=== PATIENT | male | born 1965 | race Caucasian/White ===

== ENCOUNTER 2018-04-02 17:44 | Inpatient (IN) | payer BC ==
[~2018-04-02] VITALS: Ht 177.8 cm; Wt 73.5 kg
--- NOTE | 2018-04-02 18:12 | Emergency Room Report ---
History of Present Illness General Chief Complaint: Overdose Source: Friend, EMS Present Illness HPI EMS was called by friends of this patient. They say he's taken a large amount of his phenobarbital. They're uncertain whether this was attempted to harm himself. Paramedics state that he was unresponsive for them. He was unresponsive last night but was able to Instagram at one point. He has been unresponsive since this AM. He is several days into rehab and using phenobarbital. They claim he also obtained Ambien (not from his physicians). Friends say he was worried he might inadvertently take excess medication but did not express that he wanted to harm himself. Allergies: Uncoded Allergies: RED WINE (Allergy, Unknown, 04/02/18) Patient History Limited by: medical condition Past Medical History: see triage record Social History: Reports: drug use Social History Narrative living with friends - rehab Reviewed Nursing Documentation: PMH: Agreed; PSxH: Agreed Review of Systems All Other Systems: limited Physical Exam Vital Signs Date Time Temp Pulse Resp B/P (MAP) Pulse Ox O2 Delivery O2 Flow Rate FiO2 04/02/18 17:34 97.5 60 14 133/83 97 Room Air Sp02 EP Interpretation: reviewed, normal General Appearance: Stupor Head: normocephalic, atraumatic Eyes: bilateral eye PERRL, bilateral eye Scleral Injection ENT: moist mucus membranes - + gag Neck: supple Respiratory: lungs clear, normal breath sounds Cardiovascular #1: regular rate, rhythm Cardiovascular #2: 2+ radial (R) Gastrointestinal: normal inspection, non tender, no mass, non-distended, decreased bowel sounds Genitourinary: no CVA tenderness Musculoskeletal: back normal Neurologic: other - stupor, unresponsive, but + gag, flaccid Psychiatric: other - stupor Reflexes: 0 knee (R), 0 knee (L) Skin: normal inspection, warm/dry Procedures Critical Care Time Critical Care Time Total Critical Care Time: 45 min bedside evaluation and treatment excludes procedures (EKG). Reason for critical care: stupor, OD Possible complications: hypotension, hypertension, [place], shock, arrhythmias, metabolic acidosis, end organ damage, respiratory failure. Interventions: repeat exams, consult poison control, discuss with PMD and critical care MD Course: Patient with alleged phenobarbital OD. Immediate evaluation of airway and determined not need intubation. After phenobarb level returned, consultation with poison control. Discussion with PMD who came to ED to evaluate the patient. Discussion with friends and family. Repeat evaluation with more responsiveness, however, still stuporous. Admit to ICU with discussion with critical care MD. Consultations: nursing staff, EMS, family, friends, poison control, PMD, critical care MD Performed by: Dr. Archibald Tolerated well condition = critical care MD Medical Decision Making Diagnostic Impression: Primary Impression: Drug overdose Qualified Codes: T50.904A - Poisoning by unspecified drugs, medicaments and biological substances, undetermined, initial encounter ER Course Patient presents with alleged phenobarbital overdose. Differential includes other potential medications that he might have taken, electrolyte abnormalities , AMI amongst others. The patient has a gag reflex and does not need to be intubated at this time. Evaluation will be with EKG, chest x-ray and labs. The patient will receive IV hydration. As is greater than 2 hours since the ingestion of a gastric lavage will not prove effective at this time. Will need psychiatric evaluation when more alert. EKG no injury. Labs with normal WBC. CXR no infiltrates. CMP normal. Phenobarbital elevated. Urine tox + for benzodiazepines. Discussed with Poison Control. Supportive measures. Long half life of phenobarbital necessitates admission to ICU. Discussed with family. Discussed with PMD. CT head - no bleed (atrophy). Patient more alert - rouses to name but still stuporous. Protecting airway. Contact Dr. Hernandez for admission. Laboratory Tests Test 04/02/18 18:01 04/02/18 18:30 White Blood Count 5.5 K/UL (4.8-10.8) Red Blood Count 5.05 M/UL (4.70-6.10) Hemoglobin 16.0 G/DL (14.2-18.0) Hematocrit 46.3 % (42.0-52.0) Mean Corpuscular Volume 92 FL (80-99) Mean Corpuscular Hemoglobin 31.7 PG (27.0-31.0) H Mean Corpuscular Hemoglobin Concent 34.5 G/DL (32.0-36.0) Red Cell Distribution Width 11.5 % (11.6-14.8) L Platelet Count 112 K/UL (150-450) L Mean Platelet Volume 7.8 FL (6.5-10.1) Neutrophils (%) (Auto) 53.3 % (45.0-75.0) Lymphocytes (%) (Auto) 28.9 % (20.0-45.0) Monocytes (%) (Auto) 15.1 % (1.0-10.0) H Eosinophils (%) (Auto) 1.4 % (0.0-3.0) Basophils (%) (Auto) 1.4 % (0.0-2.0) Sodium Level 142 MMOL/L (136-145) Potassium Level 4.7 MMOL/L (3.5-5.1) Chloride Level 107 MMOL/L (98-107) Carbon Dioxide Level 26 MMOL/L (21-32) Anion Gap 9 mmol/L (5-15) Blood Urea Nitrogen 8 mg/dL (7-18) Creatinine 0.9 MG/DL (0.55-1.30) Estimate Glomerular Filtration Rate > 60 mL/min (>60) Glucose Level 124 MG/DL (74-106) H Calcium Level 9.1 MG/DL (8.5-10.1) Total Bilirubin 0.2 MG/DL (0.2-1.0) Aspartate Amino Transferase (AST) 24 U/L (15-37) Alanine Aminotransferase (ALT) 37 U/L (12-78) Alkaline Phosphatase 86 U/L (46-116) Total Creatine Kinase 199 U/L (26-308) Troponin I 0.000 ng/mL (0.000-0.056) Total Protein 7.8 G/DL (6.4-8.2) Albumin 3.7 G/DL (3.4-5.0) Globulin 4.1 g/dL Albumin/Globulin Ratio 0.9 (1.0-2.7) L Salicylates Level 1.4 ug/mL (2.8-20) L Acetaminophen Level < 2 MCG/ML (10-30) L Phenobarbital Level 69.8 ug/mL (15-40) *H Serum Alcohol < 3 mg/dL Urine Color Pale yellow Urine Appearance Clear Urine pH 6.5 (4.5-8.0) Urine Specific Raymond 1.010 (1.005-1.035) Urine Protein Negative (NEGATIVE) Urine Glucose (UA) Negative (NEGATIVE) Urine Ketones Negative (NEGATIVE) Urine Blood 1+ (NEGATIVE) H Urine Nitrite Negative (NEGATIVE) Urine Bilirubin Negative (NEGATIVE) Urine Urobilinogen Normal MG/DL (0.0-1.0) Urine Leukocyte Esterase Negative (NEGATIVE) Urine RBC 0-2 /HPF (0 - 0) H Urine WBC 0-2 /HPF (0 - 0) Urine Squamous Epithelial Cells Few /LPF (NONE/OCC) Urine Bacteria Few /HPF (NONE) Urine Opiates Screen Negative (NEGATIVE) Urine Barbiturates Screen Positive (NEGATIVE) H Phencyclidine (PCP) Screen Negative (NEGATIVE) Urine Amphetamines Screen Negative (NEGATIVE) Urine Benzodiazepines Screen Positive (NEGATIVE) H Urine Cocaine Screen Negative (NEGATIVE) Urine Marijuana (THC) Screen Negative (NEGATIVE) EKG Diagnostic Results Rate: bradycardiac ST Segments: no acute changes Rhythm Strip Diag. Results EP Interpretation: yes Rhythm: no PVC's, no ectopy Chest X-Ray Diagnostic Results Chest X-Ray Diagnostic Results : Chest X-Ray Ordered: Yes # of Views/Limited/Complete: 1 View Indication: Other EP Interpretation: Yes Interpretation: no consolidation, no effusion, no pneumothorax Impression: No acute disease Electronically Signed by: Que Archibadl MD CT/MRI/US Diagnostic Results CT/MRI/US Diagnostic Results : Imaging Test Ordered: head Impression atrophy Status: improved Disposition: ADMITTED INPATIENT Condition: Critical Que Archibald MD Apr 02, 2018 18:12
[2018-04-02 18:26] LABS: BASOPHILS % (AUTO) 1.4 % (0.0-2.0); EOSINOPHILS % (AUTO) 1.4 % (0.0-3.0); HEMATOCRIT 46.3 % (42.0-52.0); LYMPHOCYTES % (AUTO) 28.9 % (20.0-45.0); MEAN CORPUSCULAR VOLUME 92 FL (80-99); MONOCYTES % (AUTO) 15.1 % (1.0-10.0); NEUTROPHILS % (AUTO) 53.3 % (45.0-75.0); PLATELET COUNT 112 K/UL (150-450); RED BLOOD COUNT 5.05 M/UL (4.70-6.10); RED CELL DISTRIBUTION WIDTH 11.5 % (11.6-14.8); WHITE BLOOD COUNT 5.5 K/UL (4.8-10.8)
[2018-04-02 18:32] LABS: ANION GAP 9 mmol/L (5-15); BLOOD UREA NITROGEN 8 mg/dL (7-18); CALCIUM 9.1 MG/DL (8.5-10.1); CARBON DIOXIDE 26 MMOL/L (21-32); CHLORIDE 107 MMOL/L (98-107); CREATININE 0.9 MG/DL (0.55-1.30); POTASSIUM 4.7 MMOL/L (3.5-5.1); SODIUM 142 MMOL/L (136-145)
[2018-04-02 18:42] LABS: ALANINE AMINOTRANSFERASE 37 U/L (12-78); ALBUMIN 3.7 G/DL (3.4-5.0); ALBUMIN/GLOBULIN RATIO 0.9 (1.0-2.7); ALKALINE PHOSPHATASE 86 U/L (46-116); ASPARTATE AMINO TRANSFERASE 24 U/L (15-37); BILIRUBIN,TOTAL 0.2 MG/DL (0.2-1.0); CREATINE KINASE 199 U/L (26-308)
[2018-04-02 18:42] LABS: APPEARANCE,URINE CLEAR; BILIRUBIN, URINE NEGATIVE (NEGATIVE); COLOR,URINE PALE YELLOW; GLUCOSE, URINE (UA) NEGATIVE (NEGATIVE); KETONES,URINE NEGATIVE (NEGATIVE); LEUKOCYTE ESTERASE ,URINE NEGATIVE (NEGATIVE); NITRITE,URINE NEGATIVE (NEGATIVE); PH,URINE 6.5 (4.5-8.0); PROTEIN,URINE NEGATIVE (NEGATIVE); UROBILINOGEN,URINE NORMAL MG/DL (0.0-1.0)
[2018-04-02 18:52] VITALS: BP 123/65
[2018-04-02 21:45] VITALS: BP 126/69
[2018-04-02 22:00] VITALS: BP 118/90
[2018-04-02] MEDS ORDERED: DEXILANT60 MG ORAL (22:09)
[2018-04-02] MEDS ORDERED: NEURONTIN300 MG ORAL (22:24)
[2018-04-02] MEDS ORDERED: PHENOBARBITAL64.8 MG PO (22:24)
[2018-04-02] MEDS ORDERED: DOXEPIN HCL10 MG ORAL (22:26)
[2018-04-02 22:30] VITALS: BP 122/92
[2018-04-02 23:00] VITALS: BP 113/75
[2018-04-03] VITALS (24 sets, daily range): BP systolic 94–120; BP diastolic 53–83
--- NOTE | 2018-04-03 10:49 | Diagnostic Imaging Report ---
Indications: Altered level of consciousness Technique: Spiral acquisitions obtained through the brain. Angled axial and coronal 5 x 5 mm slices were reconstructed. Total dose length product 1460.35 mGycm. CTDI vol(s) 70.38 mGy. Dose reduction achieved using automated exposure control Comparison: None. Findings: There is minimal prominence of the ventricles and extra axial CSF spaces. No acute intracranial hemorrhage or edema, mass effect, nor midline shift. Normal zheng-white differentiation. Visualized orbits are unremarkable. The sinuses are clear. The calvarium is intact. Impression: Negative. No evidence of acute intracranial bleed or mass effect This agrees with the preliminary interpretation provided overnight by Dr. Suh The CT scanner at [facility] is accredited by the [employer] and the scans are performed using protocols designed to limit radiation exposure to as low as reasonably achievable to attain images of sufficient resolution adequate for diagnostic evaluation.
--- NOTE | 2018-04-03 10:49 | Consultation ---
History of Present Illness General Date patient seen: Apr 03, 2018 Chief Complaint: Overdose Present Illness HPI the pt is a 53 yo homosexual male with hx of ambien, opiod and alcohol dependence who was admitted for ams. the pt was responsive however he was confusion and forgetful. the hx was provided by Chi patient's web marketing assistant. . Chi is patient's assistance and the person who found patient down in the apartment. Patient cannot recall events that led him to this hospitalization nor what medication he took. the Patient has long history of substance abuse dependency. the pt goes through periods of detox and relapses on Ambien while on phenobarbital Allergies: Uncoded Allergies: RED WINE (Allergy, Unknown, 04/02/18) Medication History Scheduled Dexlansoprazole (Dexilant), 60 MG ORAL DAILY, (Reported) Doxepin HCl (Doxepin HCl), 40 MG ORAL BEDTIME, (Reported) Phenobarbital (Phenobarbital), 64.8 MG PO Q6HR, (Reported) Scheduled PRN Gabapentin (Neurontin), 300 MG ORAL EVERY 6 HOURS PRN for Agitation, (Reported) Patient History Limited by: medical condition History Provided By: Patient, Caregiver, PMD Healthcare decision maker Resuscitation status Full Code Advanced Directive on File as per patient himself he has advance directive Past Medical/Surgical History Past Medical/Surgical History: (1) Drug overdose Review of Systems Psychiatric: Reports: prior hx, anxiety, emotional problems, hallucinations Physical Exam General Appearance: alert, confused, severe distress, agitated Last 24 Hour Vital Signs Date Time Temp Pulse Resp B/P (MAP) Pulse Ox O2 Delivery O2 Flow Rate FiO2 04/03/18 08:00 98.4 77 15 107/70 (82) 97 04/03/18 08:00 Room Air 04/03/18 08:00 80 04/03/18 07:00 79 15 107/61 (76) 97 04/03/18 06:00 81 18 113/60 (77) 97 04/03/18 05:00 79 16 116/69 (85) 97 04/03/18 04:00 77 04/03/18 04:00 Nasal Cannula 2.0 04/03/18 04:00 97.3 76 15 117/61 (79) 97 04/03/18 03:00 74 15 113/61 (78) 97 04/03/18 02:00 56 14 115/59 (77) 98 04/03/18 01:00 56 12 113/54 (73) 98 04/03/18 00:00 59 04/03/18 00:00 Nasal Cannula 2.0 04/03/18 00:00 97.0 58 14 114/66 (82) 99 04/02/18 23:00 62 17 113/75 (88) 99 04/02/18 22:30 62 18 122/92 (102) 99 04/02/18 22:00 Nasal Cannula 2.0 04/02/18 22:00 58 16 118/90 (99) 100 04/02/18 21:50 96.5 45 17 122/65 100 Nasal Cannula 2.0 04/02/18 21:45 96.4 16 126/69 (88) 100 04/02/18 21:41 48 04/02/18 18:52 97.5 44 12 123/65 100 Room Air 04/02/18 18:52 44 12 Room Air 04/02/18 17:34 97.5 60 14 133/83 97 Room Air Intake and Output 04/02/18 04/03/18 19:00 07:00 Intake Total 400 ml Output Total 0 ml 1090 ml Balance 0 ml -690 ml IV Total 400 ml Output Urine Total 0 ml 1090 ml Laboratory Tests Test 04/02/18 18:01 04/02/18 18:30 04/03/18 03:20 White Blood Count 5.5 K/UL (4.8-10.8) Red Blood Count 5.05 M/UL (4.70-6.10) Hemoglobin 16.0 G/DL (14.2-18.0) Hematocrit 46.3 % (42.0-52.0) Mean Corpuscular Volume 92 FL (80-99) Mean Corpuscular Hemoglobin 31.7 PG (27.0-31.0) H Mean Corpuscular Hemoglobin Concent 34.5 G/DL (32.0-36.0) Red Cell Distribution Width 11.5 % (11.6-14.8) L Platelet Count 112 K/UL (150-450) L Mean Platelet Volume 7.8 FL (6.5-10.1) Neutrophils (%) (Auto) 53.3 % (45.0-75.0) Lymphocytes (%) (Auto) 28.9 % (20.0-45.0) Monocytes (%) (Auto) 15.1 % (1.0-10.0) H Eosinophils (%) (Auto) 1.4 % (0.0-3.0) Basophils (%) (Auto) 1.4 % (0.0-2.0) Sodium Level 142 MMOL/L (136-145) Potassium Level 4.7 MMOL/L (3.5-5.1) Chloride Level 107 MMOL/L (98-107) Carbon Dioxide Level 26 MMOL/L (21-32) Anion Gap 9 mmol/L (5-15) Blood Urea Nitrogen 8 mg/dL (7-18) Creatinine 0.9 MG/DL (0.55-1.30) Estimat Glomerular Filtration Rate > 60 mL/min (>60) Glucose Level 124 MG/DL (74-106) H Calcium Level 9.1 MG/DL (8.5-10.1) Total Bilirubin 0.2 MG/DL (0.2-1.0) Aspartate Amino Transf (AST/SGOT) 24 U/L (15-37) Alanine Aminotransferase (ALT/SGPT) 37 U/L (12-78) Alkaline Phosphatase 86 U/L (46-116) Total Creatine Kinase 199 U/L (26-308) Troponin I 0.000 ng/mL (0.000-0.056) Total Protein 7.8 G/DL (6.4-8.2) Albumin 3.7 G/DL (3.4-5.0) Globulin 4.1 g/dL Albumin/Globulin Ratio 0.9 (1.0-2.7) L Salicylates Level 1.4 ug/mL (2.8-20) L Acetaminophen Level < 2 MCG/ML (10-30) L Phenobarbital Level 69.8 ug/mL (15-40) *H 60.5 ug/mL (15-40) *H Serum Alcohol < 3 mg/dL Urine Color Pale yellow Urine Appearance Clear Urine pH 6.5 (4.5-8.0) Urine Specific [place] 1.010 (1.005-1.035) Urine Protein Negative (NEGATIVE) Urine Glucose (UA) Negative (NEGATIVE) Urine Ketones Negative (NEGATIVE) Urine Blood 1+ (NEGATIVE) H Urine Nitrite Negative (NEGATIVE) Urine Bilirubin Negative (NEGATIVE) Urine Urobilinogen Normal MG/DL (0.0-1.0) Urine Leukocyte Esterase Negative (NEGATIVE) Urine RBC 0-2 /HPF (0 - 0) H Urine WBC 0-2 /HPF (0 - 0) Urine Squamous Epithelial Cells Few /LPF (NONE/OCC) Urine Bacteria Few /HPF (NONE) Urine Opiates Screen Negative (NEGATIVE) Urine Barbiturates Screen Positive (NEGATIVE) H Phencyclidine (PCP) Screen Negative (NEGATIVE) Urine Amphetamines Screen Negative (NEGATIVE) Urine Benzodiazepines Screen Positive (NEGATIVE) H Urine Cocaine Screen Negative (NEGATIVE) Urine Marijuana (THC) Screen Negative (NEGATIVE) Height (Feet): 5 Height (Inches): 10.00 Weight (Pounds): 165 Medications Current Medications Medications (Trade) Dose Ordered Sig/Reymundo Route PRN Reason Start Time Stop Time Status Last Admin Dose Admin Sodium Chloride 1,000 ml @ 100 mls/hr Q10H IV 04/03/18 00:15 05/03/18 00:14 04/03/18 10:12 Assessment/Plan Problem List: (1) Drug overdose ICD Codes: T50.901A - Poisoning by unspecified drugs, medicaments and biological substances, accidental (unintentional), initial encounter SNOMED: 89426948 (2) Polysubstance dependence ICD Codes: F19.20 - Other psychoactive substance dependence, uncomplicated SNOMED: 13534326 Assessment/Plan valium 10mg q 2hr/prn the pt lacks capacity to leave [facility] risperdal [facility] Wanda Gunn MD Apr 03, 2018 10:49
--- NOTE | 2018-04-03 11:22 | Diagnostic Imaging Report ---
Indication: Shortness of breath Technique: One view of the chest Comparison: none Findings: Lungs and pleural spaces are clear. Heart size is normal. There is evidence of prior cervical surgery Impression: No acute process
[2018-04-03] MEDS ORDERED: Thiamine 100mg tab ORAL SCH ×2 (13:00→16:00)
--- NOTE | 2018-04-03 15:03 | Cardiology Report ---
APPROVED REPORT EKG Measurement Heart [id number] VT [id number] Sinus bradycardia Otherwise normal ECG
[2018-04-04] VITALS (24 sets, daily range): BP systolic 89–159; BP diastolic 55–96
--- NOTE | 2018-04-04 05:01 | History and Physical Report ---
DATE OF ADMISSION: 04/02/2018 REASON FOR ADMISSION: Phenobarbital overdose. HISTORY OF PRESENT ILLNESS: This is a 53-year-old male, who was brought in due to significant alteration in mental status. The patient did not harm himself, undergoing home detox, Ambien and was closely monitored. The patient apparently had taken excessive amount of phenobarbital and was found unresponsive. The patient is overall comfortable at present, in no significant distress. The patient is able to verbalize his needs and history, although he feels unsteady at this time. PAST MEDICAL HISTORY: Notable for the above. MEDICATIONS: Reviewed. ALLERGIES: Reviewed. SOCIAL HISTORY: Living with parents, undergoing home detox. PHYSICAL EXAMINATION: GENERAL: A well-developed male, otherwise comfortable, alert, and oriented. VITAL SIGNS: Otherwise stable. HEENT: Negative. NECK: Supple. LUNGS: Clear and symmetric. CARDIAC: S1, S2. Regular rate and rhythm without murmurs, rubs, or gallops. ABDOMEN: Soft, nontender, and nondistended. EXTREMITIES: No cyanosis, clubbing, or edema. NEUROLOGIC: Grossly nonfocal. LABORATORY DATA: Reviewed. CBC normal. Platelets are 112. Blood sugar 124. The toxicology screen notable for significantly elevated phenobarbital levels, barbiturates, and benzodiazepines. IMPRESSION: 1. Phenobarbital toxicity. 2. Ambien addiction. 3. positive barbiturates, some benzodiazepines. 4. Mild thrombocytopenia. RECOMMENDATIONS: IV hydration. Advance diet. We will transfer at ICU. We will obtain psychiatric evaluation and follow up phenobarbital level for hopeful resolution and discharge planning. Geraldo Hernandez M.D. DR: JEY JOB#: [id number] CC: ZULLY
[2018-04-04 05:38] LABS: BASOPHILS % (AUTO) 0.8 % (0.0-2.0); HEMATOCRIT 38.6 % (42.0-52.0); HEMOGLOBIN 13.3 G/DL (14.2-18.0); LYMPHOCYTES % (AUTO) 31.9 % (20.0-45.0); MEAN CORPUSCULAR VOLUME 90 FL (80-99); MONOCYTES % (AUTO) 7.6 % (1.0-10.0); NEUTROPHILS % (AUTO) 58.8 % (45.0-75.0); PLATELET COUNT 142 K/UL (150-450); RED CELL DISTRIBUTION WIDTH 11.4 % (11.6-14.8); WHITE BLOOD COUNT 4.7 K/UL (4.8-10.8)
[2018-04-04] MEDS ORDERED: Thiamine 100mg tab ORAL SCH (09:00)
--- NOTE | 2018-04-04 10:20 | General Progress Note ---
Assessment/Plan Assessment/Plan IMPRESSION: 1. Phenobarbital toxicity. 2. Ambien addiction. 3. positive barbiturates, some benzodiazepines. 4. Mild thrombocytopenia. PLAN transfer to floor PT Hydration as needed dc planning psych clearance medications/laboratory data/nursing notes/ICU care reviewed in detail note reviewed and edited care discussed with RN and RT ICU time spent 40 minutes Subjective Allergies: Uncoded Allergies: RED WINE (Allergy, Unknown, 04/02/18) Subjective improved psych noted ICU care reviewed Objective Last 24 Hour Vital Signs Date Time Temp Pulse Resp B/P (MAP) Pulse Ox O2 Delivery O2 Flow Rate FiO2 04/04/18 09:00 73 16 113/94 (100) 99 04/04/18 08:00 Room Air 04/04/18 08:00 97.9 67 14 89/55 (66) 99 04/04/18 07:00 62 15 93/59 (70) 98 04/04/18 06:00 62 16 93/57 (69) 98 04/04/18 05:00 64 14 104/69 (81) 98 04/04/18 04:00 72 04/04/18 04:00 Room Air 04/04/18 04:00 97.7 66 14 90/59 (69) 98 04/04/18 03:00 64 21 95/55 (68) 97 04/04/18 02:00 65 14 101/63 (76) 97 04/04/18 01:00 65 16 93/58 (70) 100 04/04/18 00:00 65 04/04/18 00:00 Room Air 04/04/18 00:00 98.0 68 17 97/57 (70) 98 04/03/18 23:00 75 16 100/63 (75) 100 04/03/18 22:00 79 15 112/69 (83) 98 04/03/18 21:00 78 16 113/74 (87) 100 04/03/18 20:00 Room Air 04/03/18 20:00 97.9 77 16 115/80 (92) 100 04/03/18 20:00 72 04/03/18 19:00 78 19 120/76 (91) 100 04/03/18 18:00 76 18 110/75 (87) 100 04/03/18 17:00 72 16 96/74 (81) 99 04/03/18 16:00 74 04/03/18 16:00 97.9 78 16 108/75 (86) 99 04/03/18 16:00 Room Air 04/03/18 15:00 74 15 111/68 (82) 99 04/03/18 14:00 90 15 98/61 (73) 96 04/03/18 13:00 67 15 109/64 (79) 96 04/03/18 12:00 98.4 69 16 94/62 (73) 96 04/03/18 12:00 76 04/03/18 12:00 Room Air 04/03/18 11:00 76 16 99/53 (68) 96 Intake and Output 04/03/18 04/04/18 19:00 07:00 Intake Total 1890 ml 1500 ml Output Total 370 ml 650 ml Balance 1520 ml 850 ml Intake Oral 690 ml 500 ml IV Total 1200 ml 1000 ml Output Urine Total 370 ml 650 ml Laboratory Tests 04/04/18 04:20: White Blood Count 4.7L, Red Blood Count 4.30L, Hemoglobin 13.3L, Hematocrit 38.6L, Mean Corpuscular Volume 90, Mean Corpuscular Hemoglobin 30.8, Mean Corpuscular Hemoglobin Concent 34.3, Red Cell Distribution Width 11.4L, Platelet Count 142L, Mean Platelet Volume 8.0, Neutrophils (%) (Auto) 58.8, Lymphocytes (%) (Auto) 31.9, Monocytes (%) (Auto) 7.6, Eosinophils (%) (Auto) 1.0, Basophils (%) (Auto) 0.8, Phenobarbital Level 48.5*H Height (Feet): 5 Height (Inches): 10.00 Weight (Pounds): 165 Objective GENERAL: A well-developed male, otherwise comfortable, alert, and oriented. HEENT: Negative. NECK: Supple. LUNGS: Clear and symmetric. CARDIAC: S1, S2. Regular rate and rhythm without murmurs, rubs, or gallops. ABDOMEN: Soft, nontender, and nondistended. EXTREMITIES: No cyanosis, clubbing, or edema. NEUROLOGIC: Grossly nonfocal. more alert Geraldo Hernandez MD Apr 04, 2018 10:20
--- NOTE | 2018-04-04 23:54 | General Progress Note ---
Assessment/Plan Problem List: (1) Drug overdose ICD Codes: T50.901A - Poisoning by unspecified drugs, medicaments and biological substances, accidental (unintentional), initial encounter SNOMED: 66367455 (2) Polysubstance dependence ICD Codes: F19.20 - Other psychoactive substance dependence, uncomplicated SNOMED: 95168545 Status: stable Assessment/Plan valium 10mg q 2hr/prn the pt lacks capacity to leave [facility] dc risperdal qhs remeron 15mg qhs the pt is not suicidal the pt is not at imminent dts/dto Subjective Date patient seen: Apr 04, 2018 Neurologic/Psychiatric: Reports: anxiety, depressed, emotional problems Allergies: Uncoded Allergies: RED WINE (Allergy, Unknown, 04/02/18) Subjective the pt was educated in regards to mixing drugs the pt christiano on barbiturates the pt has poor insight Objective Last 24 Hour Vital Signs Date Time Temp Pulse Resp B/P (MAP) Pulse Ox O2 Delivery O2 Flow Rate FiO2 04/04/18 23:00 76 16 132/78 (96) 99 04/04/18 22:00 76 16 159/83 (108) 98 04/04/18 21:00 76 16 130/65 (86) 97 04/04/18 20:00 75 04/04/18 20:00 Room Air 04/04/18 20:00 98.8 84 16 109/69 (82) 97 04/04/18 19:00 72 17 132/79 (96) 97 04/04/18 18:00 75 17 135/81 (99) 97 04/04/18 17:00 69 17 119/75 (90) 97 04/04/18 16:00 82 04/04/18 16:00 Room Air 04/04/18 16:00 72 17 122/72 (89) 97 04/04/18 15:00 69 17 125/75 (92) 97 04/04/18 14:00 79 17 124/89 (101) 99 04/04/18 13:00 97.4 79 17 144/96 (112) 99 04/04/18 12:00 Room Air 04/04/18 12:00 85 04/04/18 12:00 76 16 113/82 (92) 99 04/04/18 11:00 74 15 106/69 (81) 99 04/04/18 10:00 72 18 115/88 (97) 99 04/04/18 09:00 73 16 113/94 (100) 99 04/04/18 08:00 65 04/04/18 08:00 Room Air 04/04/18 08:00 97.9 67 14 89/55 (66) 99 04/04/18 07:00 62 15 93/59 (70) 98 04/04/18 06:00 62 16 93/57 (69) 98 04/04/18 05:00 64 14 104/69 (81) 98 04/04/18 04:00 72 04/04/18 04:00 Room Air 04/04/18 04:00 97.7 66 14 90/59 (69) 98 04/04/18 03:00 64 21 95/55 (68) 97 04/04/18 02:00 65 14 101/63 (76) 97 04/04/18 01:00 65 16 93/58 (70) 100 04/04/18 00:00 65 04/04/18 00:00 Room Air 04/04/18 00:00 98.0 68 17 97/57 (70) 98 Intake and Output 04/03/18 04/04/18 19:00 07:00 Intake Total 1890 ml 1500 ml Output Total 370 ml 650 ml Balance 1520 ml 850 ml Intake Oral 690 ml 500 ml IV Total 1200 ml 1000 ml Output Urine Total 370 ml 650 ml Laboratory Tests 04/04/18 04:20: White Blood Count 4.7L, Red Blood Count 4.30L, Hemoglobin 13.3L, Hematocrit 38.6L, Mean Corpuscular Volume 90, Mean Corpuscular Hemoglobin 30.8, Mean Corpuscular Hemoglobin Concent 34.3, Red Cell Distribution Width 11.4L, Platelet Count 142L, Mean Platelet Volume 8.0, Neutrophils (%) (Auto) 58.8, Lymphocytes (%) (Auto) 31.9, Monocytes (%) (Auto) 7.6, Eosinophils (%) (Auto) 1.0, Basophils (%) (Auto) 0.8, Phenobarbital Level 48.5*H Height (Feet): 5 Height (Inches): 10.00 Weight (Pounds): 165 General Appearance: alert, moderate distress Neurologic: oriented x 3, responsive, depressed affect Wanda Gunn MD Apr 04, 2018 23:54
[2018-04-05] VITALS (7 sets, daily range): BP systolic 107–132; BP diastolic 64–79
--- NOTE | 2018-04-05 08:34 | General Progress Note ---
Assessment/Plan Assessment/Plan IMPRESSION: 1. Phenobarbital toxicity. 2. Ambien addiction. 3. positive barbiturates, some benzodiazepines. 4. Mild thrombocytopenia. PLAN transfer to floor ordered PT Hydration as needed dc planning/ not suicidal per psych psych clearance medications/laboratory data/nursing notes/ICU care reviewed in detail note reviewed and edited care discussed with RN and RT ICU time spent 40 minutes Subjective Allergies: Uncoded Allergies: RED WINE (Allergy, Unknown, 04/02/18) Subjective improved psych noted ICU care reviewed doing well Objective Last 24 Hour Vital Signs Date Time Temp Pulse Resp B/P (MAP) Pulse Ox O2 Delivery O2 Flow Rate FiO2 04/05/18 04:00 Room Air 04/05/18 04:00 98.4 70 18 126/70 (88) 99 04/05/18 04:00 70 04/05/18 03:00 77 18 122/72 (89) 99 04/05/18 02:00 72 18 118/69 (85) 99 04/05/18 01:00 62 18 120/70 (87) 99 04/05/18 00:00 64 16 127/70 (89) 99 04/05/18 00:00 Room Air 04/05/18 00:00 78 04/05/18 00:00 98.0 64 16 127/70 (89) 99 04/04/18 23:00 76 16 132/78 (96) 99 04/04/18 22:00 76 16 159/83 (108) 98 04/04/18 21:00 76 16 130/65 (86) 97 04/04/18 20:00 75 04/04/18 20:00 Room Air 04/04/18 20:00 98.8 84 16 109/69 (82) 97 04/04/18 19:00 72 17 132/79 (96) 97 04/04/18 18:00 75 17 135/81 (99) 97 04/04/18 17:00 69 17 119/75 (90) 97 04/04/18 16:00 82 04/04/18 16:00 Room Air 04/04/18 16:00 72 17 122/72 (89) 97 04/04/18 15:00 69 17 125/75 (92) 97 04/04/18 14:00 79 17 124/89 (101) 99 04/04/18 13:00 97.4 79 17 144/96 (112) 99 04/04/18 12:00 Room Air 04/04/18 12:00 85 04/04/18 12:00 76 16 113/82 (92) 99 04/04/18 11:00 74 15 106/69 (81) 99 04/04/18 10:00 72 18 115/88 (97) 99 04/04/18 09:00 73 16 113/94 (100) 99 Intake and Output 04/04/18 04/05/18 19:00 07:00 Intake Total 1610 ml 1420 ml Output Total 450 ml 900 ml Balance 1160 ml 520 ml Intake Oral 510 ml 220 ml IV Total 1100 ml 1200 ml Output Urine Total 450 ml 900 ml Labs Test 04/02/18 18:01 04/02/18 18:30 04/03/18 03:20 04/04/18 04:20 White Blood Count 5.5 K/UL (4.8-10.8) 4.7 K/UL (4.8-10.8) Red Blood Count 5.05 M/UL (4.70-6.10) 4.30 M/UL (4.70-6.10) Hemoglobin 16.0 G/DL (14.2-18.0) 13.3 G/DL (14.2-18.0) Hematocrit 46.3 % (42.0-52.0) 38.6 % (42.0-52.0) Mean Corpuscular Volume 92 FL (80-99) 90 FL (80-99) Mean Corpuscular Hemoglobin 31.7 PG (27.0-31.0) 30.8 PG (27.0-31.0) Mean Corpuscular Hemoglobin Concent 34.5 G/DL (32.0-36.0) 34.3 G/DL (32.0-36.0) Red Cell Distribution Width 11.5 % (11.6-14.8) 11.4 % (11.6-14.8) Platelet Count 112 K/UL (150-450) 142 K/UL (150-450) Mean Platelet Volume 7.8 FL (6.5-10.1) 8.0 FL (6.5-10.1) Neutrophils (%) (Auto) 53.3 % (45.0-75.0) 58.8 % (45.0-75.0) Lymphocytes (%) (Auto) 28.9 % (20.0-45.0) 31.9 % (20.0-45.0) Monocytes (%) (Auto) 15.1 % (1.0-10.0) 7.6 % (1.0-10.0) Eosinophils (%) (Auto) 1.4 % (0.0-3.0) 1.0 % (0.0-3.0) Basophils (%) (Auto) 1.4 % (0.0-2.0) 0.8 % (0.0-2.0) Sodium Level 142 MMOL/L (136-145) Potassium Level 4.7 MMOL/L (3.5-5.1) Chloride Level 107 MMOL/L (98-107) Carbon Dioxide Level 26 MMOL/L (21-32) Anion Gap 9 mmol/L (5-15) Blood Urea Nitrogen 8 mg/dL (7-18) Creatinine 0.9 MG/DL (0.55-1.30) Estimat Glomerular Filtration Rate > 60 mL/min (>60) Glucose Level 124 MG/DL (74-106) Calcium Level 9.1 MG/DL (8.5-10.1) Total Bilirubin 0.2 MG/DL (0.2-1.0) Aspartate Amino Transf (AST/SGOT) 24 U/L (15-37) Alanine Aminotransferase (ALT/SGPT) 37 U/L (12-78) Alkaline Phosphatase 86 U/L (46-116) Total Creatine Kinase 199 U/L (26-308) Troponin I 0.000 ng/mL (0.000-0.056) Total Protein 7.8 G/DL (6.4-8.2) Albumin 3.7 G/DL (3.4-5.0) Globulin 4.1 g/dL Albumin/Globulin Ratio 0.9 (1.0-2.7) Salicylates Level 1.4 ug/mL (2.8-20) Acetaminophen Level < 2 MCG/ML (10-30) Phenobarbital Level 69.8 ug/mL (15-40) 60.5 ug/mL (15-40) 48.5 ug/mL (15-40) Serum Alcohol < 3 mg/dL Urine Color Pale yellow Urine Appearance Clear Urine pH 6.5 (4.5-8.0) Urine Specific [place] 1.010 (1.005-1.035) Urine Protein Negative (NEGATIVE) Urine Glucose (UA) Negative (NEGATIVE) Urine Ketones Negative (NEGATIVE) Urine Blood 1+ (NEGATIVE) Urine Nitrite Negative (NEGATIVE) Urine Bilirubin Negative (NEGATIVE) Urine Urobilinogen Normal MG/DL (0.0-1.0) Urine Leukocyte Esterase Negative (NEGATIVE) Urine RBC 0-2 /HPF (0 - 0) Urine WBC 0-2 /HPF (0 - 0) Urine Squamous Epithelial Cells Few /LPF (NONE/OCC) Urine Bacteria Few /HPF (NONE) Urine Opiates Screen Negative (NEGATIVE) Urine Barbiturates Screen Positive (NEGATIVE) Phencyclidine (PCP) Screen Negative (NEGATIVE) Urine Amphetamines Screen Negative (NEGATIVE) Urine Benzodiazepines Screen Positive (NEGATIVE) Urine Cocaine Screen Negative (NEGATIVE) Urine Marijuana (THC) Screen Negative (NEGATIVE) Height (Feet): 5 Height (Inches): 10.00 Weight (Pounds): 162 Objective GENERAL: A well-developed male, otherwise comfortable, alert, and oriented. HEENT: Negative. NECK: Supple. LUNGS: Clear and symmetric. CARDIAC: S1, S2. Regular rate and rhythm without murmurs, rubs, or gallops. ABDOMEN: Soft, nontender, and nondistended. EXTREMITIES: No cyanosis, clubbing, or edema. NEUROLOGIC: Grossly nonfocal. more alert and calm Geraldo Hernandez MD Apr 05, 2018 08:34
[2018-04-05] MEDS ORDERED: Thiamine 100mg tab ORAL SCH (10:00)
[2018-04-05] MEDS ORDERED: Tubing IV Secondary IV ONE (12:14)
--- NOTE | 2018-04-05 12:25 | General Progress Note ---
Assessment/Plan Problem List: (1) Drug overdose ICD Codes: T50.901A - Poisoning by unspecified drugs, medicaments and biological substances, accidental (unintentional), initial encounter SNOMED: 65859040 Qualifiers: Qualified Codes: T50.904A - Poisoning by unspecified drugs, medicaments and biological substances, undetermined, initial encounter (2) Polysubstance dependence ICD Codes: F19.20 - Other psychoactive substance dependence, uncomplicated SNOMED: 20641338 Status: stable, progressing Assessment/Plan remeron 15mg qhs the pt is not suicidal the pt is not at imminent dts/dto the pt was given script for Lexapro and Remeron Subjective Date patient seen: Apr 05, 2018 Neurologic/Psychiatric: Reports: anxiety, depressed Allergies: Uncoded Allergies: RED WINE (Allergy, Unknown, 04/02/18) Subjective the pt was educated in regards to mixing drugs and abusing Ambien with Barbiturates. The pt was entitled. The pt was in denial about the substance use. the pt stated that his plan is to see Dr. Chaudhry at his house tomorrow. The pt refused to follow up with a psychiatrist and stated that "my friend because he took too many pills." The pt stated that he has a therapist. There is an MD who is prescribing him Phenobarbitals and has a person come to his house and administer that . the pt stated he does not recall the details. the pt stated that he is seeing Dr. Carty as well who is a "creative intern doctor." Objective Last 24 Hour Vital Signs Date Time Temp Pulse Resp B/P (MAP) Pulse Ox O2 Delivery O2 Flow Rate FiO2 04/05/18 09:00 Room Air 04/05/18 08:30 97.0 60 18 107/64 (78) 96 04/05/18 04:00 Room Air 04/05/18 04:00 98.4 70 18 126/70 (88) 99 04/05/18 04:00 70 04/05/18 03:00 77 18 122/72 (89) 99 04/05/18 02:00 72 18 118/69 (85) 99 04/05/18 01:00 62 18 120/70 (87) 99 04/05/18 00:00 64 16 127/70 (89) 99 11/15/18 00:00 Room Air 04/05/18 00:00 78 04/05/18 00:00 98.0 64 16 127/70 (89) 99 04/04/18 23:00 76 16 132/78 (96) 99 04/04/18 22:00 76 16 159/83 (108) 98 04/04/18 21:00 76 16 130/65 (86) 97 04/04/18 20:00 75 04/04/18 20:00 Room Air 04/04/18 20:00 98.8 84 16 109/69 (82) 97 04/04/18 19:00 72 17 132/79 (96) 97 04/04/18 18:00 75 17 135/81 (99) 97 04/04/18 17:00 69 17 119/75 (90) 97 04/04/18 16:00 82 04/04/18 16:00 Room Air 04/04/18 16:00 72 17 122/72 (89) 97 04/04/18 15:00 69 17 125/75 (92) 97 04/04/18 14:00 79 17 124/89 (101) 99 04/04/18 13:00 97.4 79 17 144/96 (112) 99 Intake and Output 04/04/18 04/05/18 19:00 07:00 Intake Total 1610 ml 1420 ml Output Total 450 ml 900 ml Balance 1160 ml 520 ml Intake Oral 510 ml 220 ml IV Total 1100 ml 1200 ml Output Urine Total 450 ml 900 ml Height (Feet): 5 Height (Inches): 10.00 Weight (Pounds): 162 General Appearance: no apparent distress, alert Neurologic: oriented x 3, responsive, depressed affect Wanda Gunn MD Apr 05, 2018 12:25
[2018-04-05] MEDS ORDERED: Flu Vaccine (Alfuria) for Pts Less than 65 Years old IM ONE (13:00)
[2018-04-06] MEDS ORDERED: Thiamine 100mg tab ORAL SCH (09:00)
--- NOTE | 2018-04-06 09:37 | Discharge Summary ---
Discharge Summary Discharge Summary _ DATE OF ADMISSION: 04/02/2018 DATE OF DISCHARGE: 04/05/2018 CONSULTANTS: Dr. Wanda Gunn BRIEF HOSPITAL COURSE: Patient is a 53-year-old male, who was brought in due to significant alteration in mental status. Patient was brought in via EMS. Patient was undergoing detox. He apparently had taken excessive amounts of phenobarbital and was found unresponsive. On evaluation at ED, vital signs were stable. He was given IV hydration. Labs showed normal WBC. Urine toxicology positive for barbiturate and benzodiazepine. Phenobarbital level was elevated to 69. Poison control was contacted. Due to long half-life of phenobarbital, he required admission to ICU. Head CT did not show any bleed. Chest x-ray was without infiltrates. He was given IV hydration. He underwent psychiatric evaluation. The patient had a long history of substance abuse dependency. Patient goes through episodes of detoxification and relapses on Ambien and phenobarbital. He was given Valium 10 mg every 2 hours prn. He was placed on Risperdal daily at bedtime. He was assessed to lack the capacity to sign AMA. He eventually was more awake. Risperdal was discontinued. He was given Remeron 15 mg. Patient was assessed to be not suicidal and not an imminent danger to self or to others. He was educated in regards to mixing drugs and abusing Ambien with barbiturates, but was not receptive. He was given prescription for Lexapro and Remeron. Patient was discharged home. FINAL DIAGNOSES: Phenobarbital toxicity Ambien addiction Drug overdose Polysubstance dependence Mild thrombocytopenia DISPOSITION: Patient was discharged home. DISCHARGE MEDICATIONS: Refer to Discharge Medication List. DISCHARGE INSTRUCTIONS: Follow up with PCP in a week. I have been assigned to dictate discharge summary on this account, and I was not involved in the patient's management. Naye Burnette NP Apr 06, 2018 09:37
== END 2018-04-05 12:15 | disposition home or self-care (01) | DRG 918 ==
LOC: EDBD 17:44 → EEVIPCON 18:16 → EMR 18:16 → ICU 19:29 → EDBEDREQ 20:04 → ICU 20:57 → 3E 04-05 08:25
DX: T42.3X1A Poisoning by barbiturates, accidental (unintentional), initial encounter (principal); F13.20 Sedative, hypnotic or anxiolytic dependence, uncomplicated; F19.20 Other psychoactive substance dependence, uncomplicated; R41.82 Altered mental status, unspecified; Y92.009 Unspecified place in unspecified non-institutional (private) residence as the place of occurrence of the external cause; D69.6 Thrombocytopenia, unspecified
CPT/HCPCS: 36415; 70450; 71045; 80053; 80184; 80307; 80329; 81003; 82550; 84484; 85025; 87081; 90686; 93005; 93970